=== PATIENT | female | born 1955 | race Caucasian/White ===

== ENCOUNTER 2017-06-04 07:28 | Day surgery (SDC) | payer OTHER ==
[2017-06-04] MEDS ORDERED: MIDAZOLAM 1 MG/ML 2 ML INJ (09:30)
[2017-06-04] MEDS ORDERED: FENTAnyl 50 MCG/ML VIAL (09:30)
== END 2017-06-04 11:05 | disposition home or self-care (01) ==
LOC: GIL 07:28
DX: K44.9 Diaphragmatic hernia without obstruction or gangrene (principal); K21.0 Gastro-esophageal reflux disease with esophagitis; K29.70 Gastritis, unspecified, without bleeding
CPT/HCPCS: 43239; 82962; 87081